=== PATIENT | female | born 1980 | race Caucasian/White ===

== ENCOUNTER 2017-08-24 08:29 | Emergency (ER) | payer BC, MEDICAID ==
[~2017-08-24] VITALS: Ht 149.9 cm; Wt 69.9 kg
[2017-08-24 09:27] VITALS: BP 136/76
--- NOTE | 2017-08-24 09:28 | NUR ---
PT AA&O X 4 WITH EVEN AND STEADY GAIT; PT TO LOBBY AWAITING OPEN BED.
--- NOTE | 2017-08-24 11:30 | NUR ---
37F BIB FAMILY C/O BRYSON, RUNNY NOSE, COUGH, CHILLS X YESTERDAY. DENIES N/V/D; SKIN IS PINK/WARM/DRY; AAOX4 WITH EVEN AND STEADY GAIT; LUNGS CLEAR BL;PATIENT STATES PAIN OF 10/10 AT THIS TIME PATIENT POSITIONED FOR COMFORT; HOB ELEVATED; BEDRAILS UP X2; BED DOWN. ER MD MADE AWARE OF PT STATUS.
--- NOTE | 2017-08-24 11:32 | NUR ---
RT CALLED FOR BREATHING TREATMENT.
[2017-08-24] MEDS ORDERED: ALBUTEROL SULFATE/IPRATROPIU 3 ML SOL IH ONE (11:35)
--- NOTE | 2017-08-24 11:35 | NUR ---
rt at bedside for breathing treatment
[2017-08-24] MEDS ORDERED: ACETAMINOPHEN EXTRA STRENGTH 500 MG TAB ONE (12:36)
[2017-08-24] MEDS ORDERED: ACETAMINOPHEN EXTRA STRENGTH 500 MG TAB PO ONE (12:40)
[2017-08-24] MEDS ORDERED: ONDANSETRON 4 MG/2 ML VIAL IVP ONE (12:50)
[2017-08-24] MEDS ORDERED: NACL 0.9% 500 ML IV ONE (12:50)
[2017-08-24] MEDS ORDERED: KETOROLAC 30 MG/ML VIAL IVP ONE (12:50)
[2017-08-24] MEDS ORDERED: IBUPROFEN 800 MG TAB PO ONE (12:50)
[2017-08-24] MEDS ORDERED: PROCHLORPERAZINE 10 MG/2 ML VIAL IVP ONE (13:15)
[2017-08-24] MEDS ORDERED: MORPHINE SULFATE 4 MG/ML SYR IVP ONE (13:15)
[2017-08-24 13:46] VITALS: BP 106/61
== END 2017-08-24 13:41 | disposition home or self-care (01) ==
LOC: MED 08:29
DX: J40 Bronchitis, not specified as acute or chronic (principal); H66.92 Otitis media, unspecified, left ear
CPT/HCPCS: 94640; 96374; 96375; 99284; J0780; J1885; J2270; J2405; J7030; J7620

== ENCOUNTER 2020-03-17 10:25 | Emergency (ER) | payer SELFPAY ==
[~2020-03-17] VITALS: Ht 154.9 cm; Wt 71.7 kg
[2020-03-17 10:29] VITALS: BP 135/81
--- NOTE | 2020-03-17 10:36 | NUR ---
39/F BIB SELF C/O GENERAIZED ABDOMINAL PAIN, DIARRHEA X YESTERDAY. ABD SOFT AT THIS TIME. SKIN IS PINK/WARM/DRY; AAOX4 WITH EVEN AND STEADY GAIT; LUNGS CLEAR BL; HR EVEN AND REGULAR; PT DENIES ANY FEVER, CP, SOB, OR COUGH AT THIS TIME; PATIENT STATES PAIN OF 7/10 AT THIS TIME.PATIENT POSITIONED FOR COMFORT; HOB ELEVATED; BEDRAILS UP X1; BED DOWN. ER MD MADE AWARE OF PT STATUS.
--- NOTE | 2020-03-17 10:37 | NUR ---
PATIENT AMBULATED WITH STEADY GAIT TO BED 3.
[2020-03-17] MEDS ORDERED: NACL 0.9% 1,000 ML IV ONE (10:53)
[2020-03-17] MEDS ORDERED: MORPHINE SULFATE 4 MG/ML SYR IVP ONE (10:55)
[2020-03-17] MEDS ORDERED: ONDANSETRON 4 MG/2 ML VIAL IVP ONE (10:55)
[2020-03-17 11:15] LABS: BASOPHILS % (AUTO) 0.5 % (0.0-2.0); EOSINOPHILS # (AUTO) 0.2 K/uL (0-0.4); EOSINOPHILS % (AUTO) 2.3 % (0.0-4.0); HEMATOCRIT 41.4 % (36-48); HEMOGLOBIN 13.6 g/dL (12.0-16.0); LYMPHOCYTES # (AUTO) 2.1 K/uL (2.5-16.5); LYMPHOCYTES % (AUTO) 27.3 % (20.5-51.1); MEAN CORPUSCULAR HEMOGLOBIN 28 pg (27-31); MEAN CORPUSCULAR HGB CONC 33 g/dL (33-37); MEAN CORPUSCULAR VOLUME 85.1 fL (80-94); MONOCYTES # (AUTO) 0.5 K/uL (0.8-1.0); NEUTROPHILS # (AUTO) 4.9 K/uL (1.8-7.7); NEUTROPHILS % (AUTO) 62.9 % (42.2-75.2); PLATELET COUNT (AUTO) 215 K/uL (140-450); RED BLOOD CELL COUNT(AUTO) 4.87 MIL/uL (4.20-5.40); RED CELL DISTRIBUTION WIDTH 13.6 % (11.6-13.7); WHITE BLOOD COUNT (AUTO) 7.8 K/uL (4.8-10.8)
[2020-03-17 11:23] LABS: ANION GAP 15.9 (8-16); CARBON DIOXIDE 25.1 mmol/L (21-32); CREATININE 0.6 mg/dL (0.6-1.3)
[2020-03-17 11:29] LABS: ALBUMIN 3.8 g/dL (3.4-5.0); TOTAL BILIRUBIN 1.3 mg/dL (0.0-1.0)
[2020-03-17 11:42] LABS: BILIRUBIN,URINE NEGATIVE (NEGATIVE); BLOOD, URINE NEGATIVE (NEGATIVE); COLOR,URINE YELLOW (YELLOW); LEUKOCYTE ESTERASE ,URINE NEGATIVE (NEGATIVE); NITRITE, URINE POSITIVE (NEGATIVE); UGLUCOSE NEGATIVE (NEGATIVE)
[2020-03-17 11:58] LABS: RBC,URINE 0-5 /HPF (0-5); WBC,URINE 0-5 /HPF (0-5)
[2020-03-17 11:59] LABS: APPEARANCE,URINE SLIGHTLY HAZY (CLEAR); CALCIUM OXALATE CRYSTALS,UR 0-10 /HPF (None Seen)
--- NOTE | 2020-03-17 12:01 | NUR ---
REPORT RECEIVED FROM MIRELLA DOSUZA. RESUME CARE AT THIS TIME.
[2020-03-17 12:37] VITALS: BP 125/78
--- NOTE | 2020-03-17 12:37 | NUR ---
Patient discharged with v/s stable. Written and verbal after care instructions given and explained. Patient alert, oriented and verbalized understanding of instructions. Ambulatory with steady gait. All questions addressed prior to discharge. ID band removed. Patient advised to follow up with PMD. Rx of Bentyl given. Patient educated on indication of medication including possible reaction and side effects. Opportunity to ask questions provided and answered.
== END 2020-03-17 12:37 | disposition home or self-care (01) ==
LOC: MED 10:25
DX: R10.9 Unspecified abdominal pain (principal); R11.10 Vomiting, unspecified; R19.7 Diarrhea, unspecified; Z98.890 Other specified postprocedural states
CPT/HCPCS: 36415; 74176; 80053; 81001; 81025; 83690; 85025; 96361; 96374; 96375; 99284; J2270; J2405; J7030

== ENCOUNTER 2020-07-17 13:52 | Emergency (ER) | payer SELFPAY ==
[~2020-07-17] VITALS: Ht 152.4 cm; Wt 64.4 kg
[2020-07-17 14:43] VITALS: BP 124/73
--- NOTE | 2020-07-17 15:00 | NUR ---
C/O HEADACHE, NECK PAIN WITH CHILLS SINCE WEDNESDAY. STATES SHE TESTED COVID + YESTERDAY HX DENIES STATES SHE TOOK TYLENOL 500MG X2 EARLIER WITH NO RELIEF Addendum: 07/17/20 at 1800 by MED1 NO NEED NUESING CARE.
--- NOTE | 2020-07-17 16:00 | NUR ---
Patient discharged BY RUBEN MARQUES. Written and verbal after care instructions given and explained. Patient alert, oriented and verbalized understanding of instructions. Ambulatory with steady gait. All questions addressed prior to discharge. ID band removed. Patient advised to follow up with PMD. Rx ofPROMETHAZINE,ALBUTEROL & TRAMADOL given. Patient educated on indication of medication including possible reaction and side effects. Opportunity to ask questions provided and answered.
== END 2020-07-17 16:00 | disposition home or self-care (01) ==
LOC: MED 13:52
DX: U07.1 COVID-19 (principal); R51.9 Headache, unspecified; R05 Cough; Z98.890 Other specified postprocedural states
CPT/HCPCS: 99283

== ENCOUNTER 2024-02-19 11:19 | Emergency (ER) | payer OTHER ==
[~2024-02-19] VITALS: Ht 152.4 cm; Wt 69.9 kg
[2024-02-19 11:25] VITALS: BP 145/78; PULSE 62; RESP 22; TEMP 97.9; O2SAT 99
[2024-02-19 11:40] VITALS: O2SAT 99
[2024-02-19] MEDS: MECLIZINE 25 MG TAB PO ONE (12:03)
[2024-02-19] MEDS: PROCHLORPERAZINE 5 MG TAB PO ONE (13:10)
[2024-02-19] MEDS: ACETAMINOPHEN EXTRA STRENGTH 500 MG TAB PO ONE (13:11)
[2024-02-19] MEDS: KETOROLAC 30 MG/ML VIAL IM ONE (13:12)
[2024-02-19] MEDS ORDERED: IBUP-2218 PO (14:09)
[2024-02-19] MEDS ORDERED: MECL-303 PO (14:09)
[2024-02-19] MEDS ORDERED: ACET500T99 PO (14:09)
[2024-02-19 14:23] VITALS: BP 143/75; PULSE 66; RESP 16; TEMP 98.1; O2SAT 99
== END 2024-02-19 14:23 | disposition home or self-care (01) ==
LOC: MED 11:19
DX: H81.10 Benign paroxysmal vertigo, unspecified ear (principal); G44.209 Tension-type headache, unspecified, not intractable; R03.0 Elevated blood-pressure reading, without diagnosis of hypertension; Z79.1 Long term (current) use of non-steroidal anti-inflammatories (NSAID); Z79.899 Other long term (current) drug therapy
CPT/HCPCS: 81025; 82948; 96372; 99284; J1885; J8597; Q0164